=== PATIENT | female | born 1985 | race Two or more races ===

== ENCOUNTER 2021-02-12 08:42 | Outpatient (CLI) | payer OTHER | END 2021-02-12 14:50 | disposition home or self-care (01) | LOC: RX STUDY 08:42 | PROVIDERS: ATTEND Obstetrics & Gynecology | DX: N97.1 Female infertility of tubal origin (principal) ==

== ENCOUNTER 2021-03-13 09:13 | Outpatient (CLI) | payer OTHER | END 2021-03-13 09:27 | disposition home or self-care (01) | LOC: RX STUDY 09:13 | PROVIDERS: ATTEND Radiology Diagnostic Radiology | DX: N84.0 Polyp of corpus uteri (principal) ==